=== PATIENT | male | born 1985 | race Asian ===

== ENCOUNTER 2024-11-11 15:10 | Emergency (ER) | payer MEDICAID, OTHER ==
[~2024-11-11] VITALS: Ht 165.1 cm; Wt 120.0 kg
[2024-11-11 15:57] VITALS: BP 150/90; PULSE 102; RESP 16; TEMP 98.1; O2SAT 98
[2024-11-11] MEDS: ACETAMINOPHEN/CODEINE 300-30 MG TABLET PO ONE (18:35)
[2024-11-11] MEDS: KETOROLAC TROMETHAMINE 60 MG/2 ML VIAL IM ONE (18:35)
[2024-11-11] MEDS ORDERED: IBUP-1554 PO (20:11)
[2024-11-11] MEDS ORDERED: ACET-66 PO (20:11)
== END 2024-11-11 20:34 | disposition home or self-care (01) ==
LOC: EMS 15:10
DX: S29.9XXA Unspecified injury of thorax, initial encounter (principal); I10 Essential (primary) hypertension; V29.99XA Rider (driver) (passenger) of other motorcycle injured in unspecified traffic accident, initial encounter; Y93.89 Activity, other specified; Y92.488 Other paved roadways as the place of occurrence of the external cause; Y99.8 Other external cause status
CPT/HCPCS: 99284; 72040; 72070; 73030; 96372; J1885